=== PATIENT | male | born 1950 | race Caucasian/White ===

== ENCOUNTER → 2016-11-19 | Outpatient (CLI) | payer OTHER ==
[2016-11-19 15:11] LABS: ABSOLUTE NEUTROPHILS 3.8 thou/uL (1.4-8.2); BASOPHILS 0.4 % (0.0-2.0); EOSINOPHILS 3.7 % (0.0-3.0); HEMATOCRIT 50.4 % (42.0-52.0); HEMOGLOBIN 16.7 gm/dL (14.0-18.0); LYMPHOCYTES 30.4 % (24.0-44.0); MCH 31.5 pg (26.0-34.0); MCHC 33.2 g/dL (28.0-37.0); MCV 94.9 fL (80.0-100.0); MONOCYTES 11.4 % (1.0-8.0); PLATELET COUNT 260 thou/uL (150-400); POLYS 54.1 % (36.0-66.0); RBC 5.31 mil/uL (4.50-6.00); RDW 12.9 % (10.5-14.5)
[2016-11-19 15:20] LABS: MANUAL DIFF NO
[2016-11-19 16:31] LABS: ALBUMIN 3.6 g/dL (3.4-5.0); CALCIUM 9.1 mg/dL (8.5-10.1); CREATININE 0.9 mg/dL (0.7-1.3); DILANTIN 5.4 ug/mL (10.0-20.0); POTASSIUM 3.9 mmol/L (3.5-5.1); TOTAL BILIRUBIN 0.2 mg/dL (<0.1-1.0)
== END ==
LOC: SEN 13:27
PROVIDERS: Family Medicine
DX: Z00.01 Encounter for general adult medical examination with abnormal findings (principal); R79.89 Other specified abnormal findings of blood chemistry

== ENCOUNTER → 2018-12-25 | Outpatient (CLI) | payer OTHER ==
[~2018-12-25] MED LIST: DILANTIN100 MG PO; FISH OIL 1,001000 M2 PO; MULTI VITAMIN1 EACH PO
== END ==
LOC: SEN 12:12
DX: Z76.1 Encounter for health supervision and care of foundling (principal); I10 Essential (primary) hypertension; Z79.899 Other long term (current) drug therapy